=== PATIENT | female | born 1950 | race Caucasian/White ===

== ENCOUNTER 2016-03-29 17:49 | Emergency (ER) | payer OTHER ==
[~2016-03-29] VITALS: Ht 162.6 cm; Wt 98.4 kg
[~2016-03-29 17:49] MED LIST: ALBUTEROL0.09 MG/A1 INH; CYMBALTA 20 MG20 MG PO; MASON NATURAL2000 IU PO; METFORMIN ER500 MG PO; MIRALAX17 GM PO; VITAB121000 PO; XANAX0.5 MG PO; ZETIA10 MG PO
[2016-03-29 18:28] VITALS: BP 161/90
[2016-03-29] MEDS ORDERED: METFORMIN HCL500 M4 PO (20:05)
[2016-03-29] MEDS ORDERED: MUCINEX600 M1 PO (20:06)
[2016-03-29] MEDS ORDERED: BIAXIN500 M1 PO (20:06)
[2016-03-29] MEDS ORDERED: CHERATUSSIN AC118 ML PO (20:07)
[2016-03-29] MEDS ORDERED: DULERA 200 MCG/13 GM INH (20:08)
[2016-03-29] MEDS ORDERED: PROBIOTIC250 MG PO (20:08)
--- NOTE | 2016-03-29 20:12 | RADIOLOGY REPORT ---
EXAMINATION:\H\ \N\XR CHEST CLINICAL INFORMATION: Upper respiratory infection. COMPARISON: Chest x-ray 09/08/2008 TECHNIQUE: Single PA view of the chest was obtained. 7:12 PM FINDINGS: No significant abnormality is noted involving the heart, lungs, mediastinum, bony thorax or soft tissues. Multilevel endplate degenerative spurs of dorsal spine. IMPRESSION: No acute change of chest.
--- NOTE | 2016-03-29 20:19 | ED DYSPNEA/ASTHMA COMPLAINT ---
History of Present Illness General Chief Complaint: Dyspnea (COPD, CHF, Other) Stated Complaint: DIFFICULTY BREATHING Source: patient Exam Limitations: no limitations Vital Signs & Intake/Output Vital Signs & Intake/Output Vital Signs Date Time Temp Pulse Resp B/P Pulse O2 O2 Flow FiO2 Ox Delivery Rate 03/29 2134 90 03/29 1828 100.7 119 22 161/90 92 Room Air ED Intake and Output 03/30 0000 03/29 1200 Intake Total 0 Output Total Balance 0 Intake, Oral 0 Patient 217 lb Weight Allergies Coded Allergies: cefuroxime (From CEFTIN) (Severe, ANAPHALAXIS 03/29/16) Uncoded Allergies: ?PAIN MEDICATIONS (RASH 03/29/16) Reconcile Medications Albuterol Sulfate (Albuterol Sulfate Hfa) 0.09 MG/Actuation HERMAN 2 PUFF INH Q4- 6 PRN PRN ASTHMA/COPD (Reported) 90 MCG PER PUFF Alprazolam (Xanax) 0.5 MG TAB 1 TAB PO BID PRN ANXIETY (Reported) Benzonatate (Tessalon Perle) 100 MG CAPSULE 1 CAP PO TID PRN COUGH CHOLECALCIFEROL (VITAMIN D3) (Vitamin D) (Unknown Strength) SGL (Unknown Dose) PO DAILY SUPPLEMENT (Reported) Clarithromycin (Biaxin) (Unknown Strength) TABLET (Unknown Dose) PO BID ANTIBIOTIC (Reported) Duloxetine Hydrochloride (Cymbalta) 20 MG CAP 1 CAP PO DAILY MENTAL HEALTH ( Reported) Ezetimibe (Zetia) 10 MG TAB 1 TAB PO DAILY CHOLESTEROL (Reported) Guaifenesin (Mucinex) 600 MG TAB.ER.12H 1 TAB PO BID MUCUS (Reported) Guaifenesin/Codeine Phosphate (Cheratussin AC Syrup) 100 MG-10 MG/5 ML LIQUID 10 ML PO Q4P PRN COUGH (Reported) Metformin HCl (Metformin HCl ER) 500 MG TAB.ER.24H 1 TAB PO DAILY DM ( Reported) Methylprednisolone. (Medrol) 4 MG TAB.DS.PK 1 DP PO AD INFLAMMATION 6 on day 1 then reduce by one tablet daily until gone Mometasone/Formoterol (Dulera 200 Mcg/5 Mcg Inhaler) (Unknown Strength) HFA.AER.AD (Unknown Dose) INH BID RESPIRATORY (Reported) Saccharomyces Boulardii (Probiotic) (Unknown Strength) CAPSULE (Unknown Dose) PO DAILY PROBIOTIC (Reported) Triage Note: TRIAGE: PT TO ER WITH C/C DIFFICULTY BREATHING, ONSET YESTERDAY. WAS SEEN AT [facility] AND WAS REFERRED TO ER. HAD NEB TREATMENT AND PREDNISONE WHILE AT URGENT CARE. PT REPORTS SOME RELIEF AFTER NEB TREATMENT. TEMP 100.7 AT TRIAGE. 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 HAD EKG DONE IN [place] PRIOR TO TRIAGE. CHEST XRAY ORDERED PER DR RICHARDS. Triage Nurses Notes Reviewed? yes Onset: Gradual Duration: constant Timing: single episode today Severity: moderate Activities at Onset: none HPI: Patient is a 65-year-old female with a past medical history of type 2 diabetes who presents the emergency room with a one-day history of gradual onset of clear productive cough, dyspnea on exertion, generalized not feeling well malaise, low -grade fever headache and generalized weakness and fatigue who states that today she was evaluated and seen by primary care doctor was Dr. BAUMANN had diagnosed patient with sinusitis was given clarithromycin and advised to begin Mucinex and was also given a prescription of guaifenesin with codeine. Patient then presented to urgent care facility for concerns of not feeling any better in which at the urgent care facility she received nebulizer treatment and steroids. Past History Travel History Traveled to [place] past 21 day No Medical History Any Pertinent Medical History? see below for history Neurological: NONE EENT: NONE Cardiovascular: hyperlipidemia Respiratory: asthma, COPD Gastrointestinal: NONE Hepatic: NONE Renal: NONE Musculoskeletal: L HAND FX L ANKLE FX Psychiatric: anxiety, depression Endocrine: diabetes Blood Disorders: NONE Cancer(s): NONE NURSING PROGRAM CHAIR/Reproductive: NONE History of MRSA: No History of VRE: No History of CDIFF: No Pneumonia Vaccine: 12/19/13 Surgical History Surgical History: cholecystectomy, Psychosocial History Who do you live with Spouse Services at Home None What is your primary language Romanian Tobacco Use: Quit >30 days ago ETOH Use: occasional use Illicit Drug Use: denies illicit drug use Family History Hx Contributory? No Review of Systems Review of Systems Constitutional: Reports: see HPI. EENTM: Reports: no symptoms. Respiratory: Reports: see HPI, cough. Cardiovascular: Reports: no symptoms. GI: Reports: no symptoms. Genitourinary: Reports: no symptoms. Musculoskeletal: Reports: no symptoms. Skin: Reports: no symptoms. Neurological/Psychological: Reports: no symptoms. Hematologic/Endocrine: Reports: no symptoms. Immunologic/Allergic: Reports: no symptoms. All Other Systems: Reviewed and Negative Physical Exam Physical Exam General Appearance: no apparent distress, alert, comfortable Respiratory: chest non-tender, no respiratory distress, decreased breath sounds Comments: Well-developed well-nourished person in no acute distress HEENT: Normal EENT exam, extraocular motion intact, no nystagmus. Pupils equally round and reactive to light and accommodation. Nose is atraumatic. External auditory canal and Tympanic membranes clear. Pharynx normal. No swelling or edema. Neck: Supple, no lymphadenopathy, normal range of motion without pain or tenderness Back: Nontender, no CVA tenderness. Cardiovascular: TACHYCARDIA, WITH no murmurs rubs or gallops, normal JVP Abdomen: Soft, nontender nondistended, no appreciable organomegaly. Normal bowel sounds. No ascites Extremity: No edema, no calf tenderness to palpation, normal and equal pulses. Neuro: Alert oriented x3, motor sensory normal, Skin: No appreciable rash on exposed skin, skin is warm and dry. Psych: Mood and affect is normal, memory and judgment is normal. Core Measures ACS in differential dx? No Severe Sepsis Present: No Septic Shock Present: No Progress Differential Diagnosis: asthma, AMI, bronchitis, costochondritis, CHF, COPD, musculoskeletal pain, pericarditis, pulmonary embolism, pneumonia, pneumothorax, rib fracture, unstable angina Plan of Care: Orders Procedure Date/time Status BLOOD CULTURE 03/29 2033 Active TROPONIN LEVEL 03/29 2031 Complete COMPREHENSIVE METABOLIC PANEL 03/29 2031 Complete CBC WITHOUT DIFFERENTIAL 03/29 2031 Active EKG 03/29 1750 Active Laboratory Tests 03/29/16 2100: Anion Gap 14, Estimated GFR > 60, BUN/Creatinine Ratio 26.0 H, Glucose 175 H, Calcium 9.3, Total Bilirubin 0.5, AST 24, ALT 26, Alkaline Phosphatase 78, Troponin I < 0.01, Total Protein 7.3, Albumin 4.4, Globulin 2.9, Albumin/ Globulin Ratio 1.5, CBC w Diff Pending, RBC 4.39, MCV 89.4, MCH 30.0, RDW 13.0, MPV 9.7, Gran % 95.0 H, Lymphocytes % 2.6 L, Monocytes % 2.2, Eosinophils % 0.1, Basophils % 0.1, Absolute Granulocytes 8.8 H, Absolute Lymphocytes 0.2 L, Absolute Monocytes 0.2, Absolute Eosinophils 0, Absolute Basophils 0, PUBS MCHC 33.6 Microbiology 03/29 2101 BLOOD: Blood Culture - RECD 03/29 2099 BLOOD: Blood Culture - RECD Patient on examination was afebrile no respiratory distress Patient has unremarkable chest x-ray and blood work Blood cultures currently pending Patient was given nebulizer treatment and states she feels significantly improved. Patient walked down the emergency room under my supervision was pulse ox noted patient to have 91% room air no respiratory distress Patient was strongly advised to follow-up with primary care doctor in 2 days if no better and was given prescription of antitussive and prednisone and which patient had already received medications as discussed in the history of present illness On discharge patient looks well no apparent distress and will comply with discharge instructions and had no questions. I do not suspect patient has concerns of pulmonary embolism or myocardial infarction in which patient's tachycardia is most likely due to infectious process (LAURYN KAUR,JAY) Diagnostic Imaging: Viewed by Me: Radiology Read. CXR Impression: no acute abnormality, no infiltrates Initial ED EKG: SINUS TACHYCARDIA 115 BPM Comments: PATIENT: TEDDY HERRING PRESENT AGE: 65 PATIENT ACCOUNT NO: [id number] : 48 LOCATION: [facility] ORDERING PHYSICIAN: JAY KAUR SERVICE DATE: 03/29/16 EXAM TYPE: RAD - XRY-CHEST XRAY, ONE VIEW ONLY EXAMINATION:\H\ \N\XR CHEST CLINICAL INFORMATION: Upper respiratory infection. COMPARISON: Chest x-ray 09/08/2008 TECHNIQUE: Single PA view of the chest was obtained. 7:12 PM FINDINGS: No significant abnormality is noted involving the heart, lungs, mediastinum, bony thorax or soft tissues. Multilevel endplate degenerative spurs of dorsal spine. IMPRESSION: No acute change of chest. Departure Departure Disposition: HOME OR SELF CARE Condition: Stable Clinical Impression Primary Impression: Sinusitis Secondary Impressions: Upper respiratory infection Referrals: IBIS STALLINGS,ESTHELA Medina (PCP/Family) Additional Instructions: As discussed begin the prescription on Medrol Dosepak tomorrow as he received prednisone previously today. Continue recently prescribed clarithromycin, inhaler and Robitussin with codeine for your symptoms. Begin the prescription Tessalon Perles for cough. Follow up with primary care doctor in 2 days if no better. If symptoms worsen return to the emergency room. Continue home medications as directed. Prescriptions awaiting at your [facility] Departure Forms: Customer Survey General Discharge Information Prescriptions: Current Visit Scripts Benzonatate (Tessalon Perle) 1 CAP PO TID PRN COUGH #21 CAP Methylprednisolone. (Medrol) 1 DP PO AD #1 DP 6 on day 1 then reduce by one tablet daily until gone Critical Care Note Critical Care Note Critical Care Time: non-applicable
[2016-03-29 21:24] LABS: ABSOLUTE BASOPHIL COUNT 0 /CUMM (0.0-0.2); ABSOLUTE EOSINOPHIL COUNT 0 /CUMM (0.0-0.7); ABSOLUTE GRANULOCYTE CT 8.8 /CUMM (1.4-6.5); ABSOLUTE LYMPH COUNT 0.2 /CUMM (1.2-3.4); ABSOLUTE MONOCYTE COUNT 0.2 /CUMM (0.10-0.60); BASOPHIL % 0.1 % (0.0-2.0); EOSINOPHIL % 0.1 % (0-5); HEMATOCRIT 39.2 % (37-47); MEAN CORPUSCULAR HGB CONC 33.6 G/DL (33.0-37.0); MEAN CORPUSCULAR VOLUME 89.4 FL (81.0-99.0); MEAN PLATELET VOLUME 9.7 FL (7.4-10.4); PLATELET COUNT 233 /CUMM (130-400); RED BLOOD CELL CT 4.39 /CUMM (4.20-5.40); WHITE BLOOD CELL COUNT 9.3 /CUMM (4.8-10.8)
[2016-03-29] MEDS ORDERED: TESSALON PERLE100 M1 PO (22:20)
[2016-03-29] MEDS ORDERED: MEDROL4 M2 PO (22:20)
== END 2016-03-29 22:35 ==
LOC: ERH 17:49
PROVIDERS: Physician Assistant
DX: J32.9 Chronic sinusitis, unspecified (principal); J06.9 Acute upper respiratory infection, unspecified
CPT/HCPCS: 1263; 87040; 93005; 93010